=== PATIENT | male | born 1980 | race Caucasian/White ===

== ENCOUNTER → 2017-06-06 | Outpatient (CLI) | payer OTHER ==
[~2017-06-06] MED LIST: CHOL2000 PO; INSDGI SC; NCDT14 TD; NVLGI SC
[2017-06-06 16:35] LABS: HEMATOCRIT 40.8 % (42-52)
[2017-06-06 17:40] LABS: ALT/SGPT 27 U/L (12-78); BLOOD UREA NITROGEN 13 mg/dl (7-18); BUN/CREATININE RATIO 14.4 (10-20); CALCIUM 9.1 mg/dl (8.5-10.1); CARBON DIOXIDE 29 mmol/L (21-32); CHLORIDE 106 mmol/L (98-107); CHOLESTEROL 169 mg/dl (0-200); CREATININE 0.93 mg/dl (0.60-1.40); GLUCOSE 128 mg/dl (70-99); POTASSIUM 3.8 mmol/L (3.5-5.1); SODIUM 139 mmol/L (136-145); TRIGLYCERIDES 115 mg/dl (0-150); VERY LOW DENSITY LIPOPROT CALC 23 mg/dl
[2017-06-06 17:50] LABS: ALB/GLOB RATIO 1.1 (0.9-2); ALKALINE PHOSPHATASE 113 U/L (45-117); AST/SGOT 19 U/L (15-37); HDL CHOLESTEROL 57 mg/dl; LDL CHOLESTEROL CALCULATED 89 mg/dl
[2017-06-06 17:52] LABS: RATIO 16.1 mcg/mg (0-30.0)
[2017-06-07 07:53] LABS: ESTIMATED AVERAGE GLUCOSE 275 mg/dl; HA1C FLAG Normal (Normal)
== END | disposition home or self-care (01) ==
LOC: C.LAB1850 15:46
PROVIDERS: ATTEND Nurse Practitioner Adult Health
DX: E78.5 Hyperlipidemia, unspecified (principal); E10.10 Type 1 diabetes mellitus with ketoacidosis without coma

== ENCOUNTER 2020-03-23 21:20 | Observation (INO) ==
[2020-03-23] MEDS ORDERED: SODIUM CHLORIDE 0.9% 1000ML 2,000 ML IV ONE (22:08)
[2020-03-23] MEDS ORDERED: ONDANSETRON INJ 2 MG/ML 2 ML VIAL IV STA (22:08)
[2020-03-23 22:17] LABS: Basophils # (auto) 0.07 K/uL (0-0.2); Basophils % (auto) 0.3 %; Eosinophils # (auto) 0.03 K/uL (0-0.5); Eosinophils % (auto) 0.1 %; Hematocrit (blood only) 47.1 % (42-52); Hemoglobin 17.1 g/dL (14.0-18.0); Immature Granulocytes # (auto) 0.09 K/uL (0.00-0.02); Immature Granulocytes % (auto) 0.4 %; Lymphocytes # (auto) 3.28 K/uL (1.2-3.4); Lymphocytes % (auto) 15.5 %; Mean Corpuscular Hemoglobin 33.5 pg (25-34); Mean Corpuscular Hgb Conc 36.3 g/dL (32-36); Mean Corpuscular Volume 92.2 fL (80-100); Mean Platelet Volume 9.5 fL (7.4-10.4); Monocytes % (auto) 6.6 %; Neutrophils # (auto) 16.29 K/uL (1.4-6.5); Neutrophils % (auto) 77.1 %; Platelet Count 409 K/uL (130-400); RDW Coefficient of Variation 13.2 % (11.5-14.5); RDW Standard Deviation 44.4 fL (36.4-46.3); Red Blood Count 5.11 M/uL (4.7-6.1); White Blood Count 21.16 K/uL (4.8-10.8)
[2020-03-23 22:34] LABS: Base Excess VBG -11.4 mEq/L; Oxygen Saturation VBG 60.7 %; pH VBG 7.24 (7.36-7.41)
[2020-03-23 22:48] LABS: Alanine Aminotransferase 33 U/L (12-78); Albumin Level 4.2 gm/dl (3.4-5.0); Alkaline Phosphatase 109 U/L (45-117); Aspartate Aminotransferase 23 U/L (15-37); BUN Creatinine Ratio 18.6 (10-20); Bilirubin,Total 0.9 mg/dl (0.2-1); Blood Urea Nitrogen 24 mg/dl (7-18); Calcium 10.2 mg/dl (8.5-10.1); Carbon Dioxide 13 mmol/L (21-32); Chloride 95 mmol/L (98-107); Creatinine Clr Calc Pharmacy 69.5 ml/min; Est GFR (African American) 81.5; Est GFR (Non-African American) 70.4; Globulin 4.1 gm/dl (2.5-4.0); Glucose 444 mg/dl (70-99); Lipase 77 U/L (73-393); Magnesium 2.1 mg/dl (1.8-2.4); Phosphorus 4.6 mg/dl (2.5-4.9); Potassium 5.5 mmol/L (3.5-5.1); Sodium 130 mmol/L (136-145); Total Protein 8.3 gm/dl (6.4-8.2); Troponin I < 0.015 ng/ml (0-0.045)
[2020-03-23] MEDS ORDERED: GLUCAGON FOR INJ 1 MG VIAL SQ PRN (22:55)
[2020-03-23] MEDS ORDERED: DEXTROSE 50% 50 ML SYRINGE IV PRN (22:55)
[2020-03-23] MEDS ORDERED: GLUCOSE 10 TABS/TUBE PO PRN (22:55)
[2020-03-23] MEDS ORDERED: CARBOHYDRATES FOR HYPOGLYCEMIA PO PRN (22:55)
[2020-03-23] MEDS ORDERED: GLUCOSE 40% GEL 15 GM TUBE PO PRN (22:55)
[2020-03-23] MEDS ORDERED: ED DKA INSULIN DRIP ONE (22:55)
[2020-03-23] MEDS ORDERED: MoRPHine SULFATE 4 MG/ML 1 ML CARP\\VIAL IV STA (22:58)
[2020-03-23] MEDS ORDERED: INSULIN REGULAR 250 UNITS in SODIUM CHLORIDE 0.9% 247.5 ML IV SCH (23:00)
--- NOTE | 2020-03-23 23:13 | Emergency Department Note ---
History of Present Illness General Chief complaint: Vomiting Stated complaint: KETONES, DIABETIC Time Seen by Provider: 03/23/20 22:00 Source: patient Mode of arrival: ambulatory Limitations: no limitations History of Present Illness This patient is a 39-year-old male who presents to the emergency department for evaluation of vomiting. Patient reports he is a type I diabetic. He states that he woke up this morning vomiting and has not been able to keep anything down all day. He states that he checked his urine ketones and he had large urine ketones. He reports his sugars have been in the 300s all day. He does not have a pump and gives himself insulin injections but has not given himself insulin today. He does admit to drinking alcohol last night and states that when he has had DKA in the past, it has been precipitated by alcohol use. Patient denies any recent fevers or illness. He reports some mild pain across the front of the chest. He denies shortness of breath but notes his breathing has been faster than normal. He states that he follows with Dr. Chavez. Home Medications Home Medications Medication Instructions Recorded Confirmed Type pen needle, diabetic 32 gauge x #10 ea 05/08/19 03/06/20 History " rosuvastatin 10 mg tablet 10 mg PO DAILY #30 tab 09/06/19 03/23/20 Rx acetone (urine) test #100 ea 02/18/20 03/06/20 Rx insulin lispro 100 unit/mL 120 units SQ .COMPLEX #40 ml 02/18/20 03/23/20 Rx subcutaneous solution insulin syringe-needle U-100 0.5 #100 ea 02/18/20 03/06/20 Rx mL 31 gauge x /16" lancets 33 gauge #100 ea 02/18/20 03/06/20 Rx cholecalciferol (vitamin D3) 50 5,000 units PO DAILY cap 02/20/20 03/23/20 History mcg (2,000 unit) capsule insulin glargine 100 unit/mL (3 25 units SQ QPM ml 03/04/20 03/23/20 History mL) subcutaneous pen lisinopril 5 mg tablet 5 mg PO DAILY #90 tab 03/06/20 03/23/20 Rx blood sugar diagnostic #200 ea 03/11/20 Rx Allergies Allergy/AdvReac Type Severity Reaction Status Date / Time Penicillins Allergy Unknown Rash Verified 03/23/20 22:45 Past Med/Surg History Medical History Back strain (Inactive) Diabetes type 1, uncontrolled Finger fracture, left (Inactive) Finger laceration (Inactive) Injury, crush, finger (Inactive) Pneumonitis (Inactive) Rib contusion (Inactive) Right leg pain (Inactive) Surgical History No significant past surgical history Family History Sister Myocardial infarction Diabetes Mother Diabetes Grandmother (Maternal) Diabetes Grandfather (Paternal) Diabetes Denies family history of Ovarian cancer Prostate cancer Breast cancer Colorectal cancer Social History Smoking Status: Current every day smoker Age Started Using Tobacco: 18; packs per day: 1; Cigarettes Per Day: 20; Hx Alcohol Use: Yes Alcohol type: hard liquor Hx Substance Use: Yes Prescribed Medications: Marijuana Last Used Substance: Hours (ago) Preferred Language: [place] Visual Impairment: Limited Hearing Ability: Normal Clinical Manager Home Care Required: No Beliefs That Will Affect Care: None marital status: Single Current Living Situation: Parent and Family current occupational status: employed current occupation: [employer] Other Information That Helps Us Care for You: No Feels Safe at Home: Yes Safety Concerns: Feels Safe At This Time Childhood Exposure to Second-Hand Smoke: Yes Dental Care, Regularly: No Physical Activity Frequency: Daily Seatbelt Use: always Sunscreen Use: No Review of Systems A total of 10 systems reviewed and were otherwise negative Physical Exam Vital Signs Vital Signs - 24 hr 03/23/20 21:27 03/23/20 22:17 03/23/20 22:30 Temperature 36.5 C Temperature Source Oral Pulse Rate 128 H 109 H 113 H Pulse Rate [Apical] 108 H Pulse Rate from SpO2 Sensor 113 H Pulse Rhythm Regular Respiratory Rate 20 24 30 H Respiratory Effort / Characteristics Other Respiratory Depth Normal Blood Pressure 150/81 H Blood Pressure [Left Arm] 172/80 H Blood Pressure Mean 104 Blood Pressure Mean [Left Arm] 110 Blood Pressure Position [Left Arm] Lying Pulse Oximetry 97 99 98 Oxygen Delivery Method Room Air Room Air Sepsis Recent Fever Within 48 Hours No Sepsis New/Unexplained Change in Mental Status No Sepsis Action Taken by Nursing No Action Required 03/23/20 22:38 03/23/20 23:28 03/23/20 23:30 Temperature Temperature Source Pulse Rate 111 H 119 H 118 H Pulse Rate [Apical] Pulse Rate from SpO2 Sensor 110 H 119 H 118 H Pulse Rhythm Respiratory Rate 28 H 24 14 Respiratory Effort / Characteristics Respiratory Depth Blood Pressure 148/83 H 151/66 H 122/46 L Blood Pressure [Left Arm] Blood Pressure Mean 99 97 66 Blood Pressure Mean [Left Arm] Blood Pressure Position [Left Arm] Pulse Oximetry 98 96 97 Oxygen Delivery Method Room Air Room Air Sepsis Recent Fever Within 48 Hours Sepsis New/Unexplained Change in Mental Status Sepsis Action Taken by Nursing 03/24/20 00:00 Temperature Temperature Source Pulse Rate Pulse Rate [Apical] Pulse Rate from SpO2 Sensor 118 H Pulse Rhythm Respiratory Rate 24 Respiratory Effort / Characteristics Respiratory Depth Blood Pressure 140/55 L Blood Pressure [Left Arm] Blood Pressure Mean 72 Blood Pressure Mean [Left Arm] Blood Pressure Position [Left Arm] Pulse Oximetry 95 Oxygen Delivery Method Room Air Sepsis Recent Fever Within 48 Hours Sepsis New/Unexplained Change in Mental Status Sepsis Action Taken by Nursing VITALS: Vitals are noted on the nurse's note and reviewed by myself. GENERAL: This is a 39-year-old male, in moderate distress, thin appearing. SKIN: There are no rashes. HEAD: Normocephalic atraumatic. EARS: External auditory canals clear, tympanic membranes pearly foote without erythema or effusion bilaterally. EYES: Pupils equal round and reactive to light and accommodation. No scleral icterus. MOUTH: Mucous membranes dry. NECK: Supple without nuchal rigidity. No lymphadenopathy. HEART: Tachycardic. Regular rhythm. Systolic murmur noted. LUNGS: Tachypneic, clear to auscultation bilaterally without wheezes, rales or rhonchi. No retractions or accessory muscle use. ABDOMEN: Positive bowel sounds x 4. Soft, nontender to palpation. NEURO: Patient was alert and oriented to person place and time. Course Reevaluation(s) Reevaluation #1: I reevaluated the patient. He is complaining of some mild pain across the front of the chest. I ordered the patient a dose of morphine. Consultations Consultation #1: Dr. Malick FUNG hospitalist Administered Medications Insulin Human Regular 250 (units/ Sodium Chloride) 250 mls @ 6 mls/hr IV .Q24H SANDEEP; Protocol Stop: 04/22/20 22:59 Last Titration: 03/24/20 01:42 Dose: 5.8 units/hr, 5.8 mls/hr Documented by: [id number] Cosigned by: [id number] Titration: 03/24/20 00:32 Dose: 7.2 units/hr, 7.2 mls/hr Documented by: [id number] Cosigned by: [id number] Admin: 03/23/20 23:30 Dose: 6 units/hr, 6 mls/hr Documented by: [id number] Cosigned by: [id number] Sodium Chloride (Nss 1000ml) 1,000 mls @ 999 mls/hr IV .Q1H1M SANDEEP Stop: 03/24/20 02:02 Last Admin: 03/24/20 01:12 Dose: 999 mls/hr Documented by: [id number] Discontinued Medications Sodium Chloride (Nss 1000ml) 2,000 mls @ 999 mls/hr IV .Q2H1M ONE Stop: 03/24/20 00:08 Last Infusion: 03/24/20 00:18 Dose: 0 mls/hr Documented by: [id number] Admin: 03/23/20 22:12 Dose: 999 mls/hr Documented by: [id number] Insulin Human Regular (Novolin R Bolus From Bag) 6 units IV ONE ONE Stop: 03/23/20 23:16 Last Admin: 03/23/20 23:31 Dose: 6 units Documented by: [id number] Cosigned by: [id number] Morphine Sulfate (Morphine Sulfate) 4 mg IV NOW STA Stop: 03/23/20 22:59 Last Admin: 03/23/20 23:15 Dose: 4 mg Documented by: [id number] Ondansetron HCl (Zofran) 4 mg IV NOW STA Stop: 03/23/20 22:09 Last Admin: 03/23/20 22:13 Dose: 4 mg Documented by: [id number] Critical Care Time Critical Care Time: Yes Total Critical Care Time: 40 I have personally spent greater than 40 minutes of critical care time in the direct management of this patient. This includes bedside care, interpretation of diagnostic studies, and testing, discussion with consultants, patient, and family members, and other required patient management activities. This 40 minutes is in excess of all separately billable procedures. Medical Decision Making Differential Diagnosis Differential diagnosis includes DKA, HHS, infection, sepsis, dehydration, electrolyte imbalance, among others. Medical Records Attestation: I reviewed the patient's medical records. Home Medications Current Medication List: was personally reviewed by me Laboratory Data Attestation: I reviewed the patient's lab results. Result diagrams: 03/23/20 22:06 03/23/20 22:06 Lab Results 03/23/20 03/23/20 03/23/20 Range/Units 22:06 22:06 22:22 WBC 21.16 H (4.8-10.8) K/uL RBC 5.11 (4.7-6.1) M/uL Hgb 17.1 (14.0-18.0) g/dL Hct 47.1 (42-52) % MCV 92.2 (80-100) fL MCH 33.5 (25-34) pg MCHC 36.3 H (32-36) g/dL RDW Std Deviation 44.4 (36.4-46.3) fL RDW Coeff of Norberto 13.2 (11.5-14.5) % Plt Count 409 H (130-400) K/uL MPV 9.5 (7.4-10.4) fL Immature Gran % (Auto) 0.4 % Neut % (Auto) 77.1 % Lymph % (Auto) 15.5 % [place] % (Auto) 6.6 % Eos % (Auto) 0.1 % Baso % (Auto) 0.3 % Neut # (Auto) 16.29 H (1.4-6.5) K/uL Lymph # (Auto) 3.28 (1.2-3.4) K/uL [place] # (Auto) 1.40 H (0.11-0.59) K/uL Eos # (Auto) 0.03 (0-0.5) K/uL Baso # (Auto) 0.07 (0-0.2) K/uL Immature Gran # (Auto) 0.09 H (0.00-0.02) K/uL VBG pH 7.24 L (7.36-7.41) VBG pCO2 36 L (38-50) mmHg VBG pO2 37 mmHg VBG HCO3 15 mmol/L VBG O2 Saturation 60.7 % VBG Base Excess -11.4 mEq/L Barometric Pressure 728.3 mm/Hg Sodium 130 L (136-145) mmol/L Potassium 5.5 H (3.5-5.1) mmol/L Chloride 95 L (98-107) mmol/L Carbon Dioxide 13 L (21-32) mmol/L Anion Gap 22.0 H (3-11) BUN 24 H (7-18) mg/dl Creatinine 1.29 (0.6-1.4) mg/dl Est Cr Clr Drug Dosing 69.5 ml/min Est GFR ( Amer) 81.5 Est GFR (Non-Af Amer) 70.4 BUN/Creatinine Ratio 18.6 (10-20) Glucose 444 H* (70-99) mg/dl Calcium 10.2 H (8.5-10.1) mg/dl Phosphorus 4.6 (2.5-4.9) mg/dl Magnesium 2.1 (1.8-2.4) mg/dl Total Bilirubin 0.9 (0.2-1) mg/dl AST 23 (15-37) U/L ALT 33 (12-78) U/L Alkaline Phosphatase 109 (45-117) U/L Troponin I < 0.015 (0-0.045) ng/ml Total Protein 8.3 H (6.4-8.2) gm/dl Albumin 4.2 (3.4-5.0) gm/dl Globulin 4.1 H (2.5-4.0) gm/dl Albumin/Globulin Ratio 1.0 (0.9-2) Lipase 77 (73-393) U/L Beta-Hydroxybutyric Acd (0.2-2.81) mg/dl Urine Color Urine Appearance (Clear) Urine pH (4.5-7.5) Ur Specific [place] (1.000-1.030) Urine Protein (Negative) Urine Glucose (UA) (Negative) Urine Ketones (Negative) Urine Blood (Negative) Urine Nitrite (Negative) Urine Bilirubin (Negative) Urine Urobilinogen (Negative) Ur Leukocyte Esterase (Negative) 03/23/20 Range/Units 23:19 WBC (4.8-10.8) K/uL RBC (4.7-6.1) M/uL Hgb (14.0-18.0) g/dL Hct (42-52) % MCV (80-100) fL MCH (25-34) pg MCHC (32-36) g/dL RDW Std Deviation (36.4-46.3) fL RDW Coeff of Norberto (11.5-14.5) % Plt Count (130-400) K/uL MPV (7.4-10.4) fL Immature Gran % (Auto) % Neut % (Auto) % Lymph % (Auto) % [place] % (Auto) % Eos % (Auto) % Baso % (Auto) % Neut # (Auto) (1.4-6.5) K/uL Lymph # (Auto) (1.2-3.4) K/uL [place] # (Auto) (0.11-0.59) K/uL Eos # (Auto) (0-0.5) K/uL Baso # (Auto) (0-0.2) K/uL Immature Gran # (Auto) (0.00-0.02) K/uL VBG pH (7.36-7.41) VBG pCO2 (38-50) mmHg VBG pO2 mmHg VBG HCO3 mmol/L VBG O2 Saturation % VBG Base Excess mEq/L Barometric Pressure mm/Hg Sodium (136-145) mmol/L Potassium (3.5-5.1) mmol/L Chloride (98-107) mmol/L Carbon Dioxide (21-32) mmol/L Anion Gap (3-11) BUN (7-18) mg/dl Creatinine (0.6-1.4) mg/dl Est Cr Clr Drug Dosing ml/min Est GFR ( Amer) Est GFR (Non-Af Amer) BUN/Creatinine Ratio (10-20) Glucose (70-99) mg/dl Calcium (8.5-10.1) mg/dl Phosphorus (2.5-4.9) mg/dl Magnesium (1.8-2.4) mg/dl Total Bilirubin (0.2-1) mg/dl AST (15-37) U/L ALT (12-78) U/L Alkaline Phosphatase (45-117) U/L Troponin I (0-0.045) ng/ml Total Protein (6.4-8.2) gm/dl Albumin (3.4-5.0) gm/dl Globulin (2.5-4.0) gm/dl Albumin/Globulin Ratio (0.9-2) Lipase (73-393) U/L Beta-Hydroxybutyric Acd (0.2-2.81) mg/dl Urine Color Yellow Urine Appearance Clear (Clear) Urine pH 5.0 (4.5-7.5) Ur Specific [place] 1.030 (1.000-1.030) Urine Protein Negative (Negative) Urine Glucose (UA) 3+ H (Negative) Urine Ketones 4+ H (Negative) Urine Blood Negative (Negative) Urine Nitrite Negative (Negative) Urine Bilirubin Negative (Negative) Urine Urobilinogen Negative (Negative) Ur Leukocyte Esterase Negative (Negative) Imaging Data Attestation: I personally reviewed and interpreted this imaging study as follows: Radiologist's Impression: CHEST 1 VIEW: No pneumothorax, no pulmonary consolidation. No cardiomegaly. ECG Data Attestation: I personally reviewed and interpreted this ECG as follows: Indication: + chest pain Rate (beats per minute): 108 Rhythm: + sinus tachycardia ECG Intervals/blocks: + Normal QRS and + Normal QT ECG ST segments: + Normal ST segments Change: no significant change Blood Pressure Blood Pressure Findings: Elevated blood pressure Blood Pressure Disposition: further management by hospitalist [facility] Narrative The patient is a 39-year-old male who presents today for evaluation of vomiting and elevated blood sugar. Patient check had positive urine ketones at home. Patient appears dry, he is tachycardic and tachypneic. He has a leukocytosis of 21,000. There was no anemia. VBG with pH of 7.24, sodium 130, potassium 5.5, chloride 95, bicarb 13 and a anion gap of 22. Glucose elevated at 444. Urine positive for glucose and ketones. Patient was treated in the emergency department with 2 L of IV normal saline solution and started on insulin drip. The case was discussed with the [facility] hospitalist service, who agreed to evaluate the patient for further care. Continuous gift packer: Order was placed for continuous gift packer. Patient was placed on the gift packer. Patient was noted to be in sinus tachycardia at an initial rate of 128 bpm. Impression & Plan DKA (diabetic ketoacidosis) Discharge Plan Visit Data *Final* Discharge Date/Time: 03/24/20 00:47 Chief Complaint: Vomiting Stated Complaint: KETONES, DIABETIC ED Provider: Vinny Du ED Midlevel Provider: Norah Garcia Discharge Problem: DKA (diabetic ketoacidosis) Patient Disposition: Admitted As Inpatient Discharge Instructions Interventions: ED Discharge Assessment Last Done: 03/24/20 00:47 Discharge Problem: DKA (diabetic ketoacidosis) Qualifiers: Diabetes mellitus type: type 1 Diabetes mellitus complication detail: without coma Qualified Code(s): E10.10 - Type 1 diabetes mellitus with ketoacidosis without coma
[2020-03-23] MEDS ORDERED: NovoLIN-R BOLUS FROM BAG IV ONE (23:15)
[2020-03-23 23:40] LABS: Appearance Urine Clear (Clear); Bilirubin Urine Negative (Negative); Blood Urine Negative (Negative); Color Urine Yellow; Glucose Urine UA 3+ (Negative); Ketones Urine 4+ (Negative); Leukocyte Esterase Urine Negative (Negative); Nitrite Urine Negative (Negative); Protein Urine Negative (Negative); Urobilinogen Urine Negative (Negative)
--- NOTE | 2020-03-24 00:20 | History & Physical Report ---
Date of Service March 24, 2020 Assessment & Plan (1) DKA (diabetic ketoacidosis): Patient with longstanding history of Type I DM, poorly controlled (Last [id number] which is improved from prior) with microalbuminuria presenting with DKA in setting of recent heavy EtOH consumption. Patient with AGMA with pH=7.24, Anion gap = 22. Blood glucose = 444, +Ketones in urine -Admit to PCU -NPO for now -NSS x 1L bolus for total of 3L -Insulin gtt per protocol -Monitor fingersticks q 1 hourly -Monitor BMP, Mg, PO4 and VBG q 4 hours -Transition to SQ insulin when gap closed and blood sugars controlled -Continue Lisinopril 5mg -Continue Crestor 10mg F/E/N - Normosol, pending fluid change with KCl and D5 based on labs, monitor electrolytes as above, NPO for now Ppx - low risk for DVT Code - Full Dispo - Admit to PCU Present on Admission?: Yes Admission and Anticipated Discharge Date Admission Date: 03/24/20 Anticipated date of discharge: 03/25/20 History of Present Illness Chief Complaint: DKA Primary Care Provider: Unique Schafer MD Lopez Katz is a 39yo C male with history of Type-I DM since age 8 months presenting with DKA. Patient follows with Diabetes/Endocrine clinic, last seen on 03/21/20. He reports drinking a fair amount of alcohol on the night prior to admission - appx 1/2 a bottle of 99 Peaches. Yesterday AM he woke up with some nausea and reports vomiting black liquid which he reports frequently occurs when he has ketones. He checked his blood sugar which read "HIGH" and had moderate amount of ketones in his urine. He reports trying to drink fluids, however, he had persistent nausea, vomiting and inability to tolerate PO. He checked his ketones later in the day and found to have large ketones. He reports ongoing nausea with vomiting and dry heaving as well as dry mouth. No additional complaints. He denies fever/chills/cough/SOB/abdominal pain/diarrhea/dysuria. He has no concerns for exposure to COVID-19. He reports taking his Lantus 03/23/20 around midnight. He also took 10 units of Insulin Lispro this afternoon. ER Course: NSS x 2 liters, Insulin gtt Allergies Allergy/AdvReac Type Severity Reaction Status Date / Time Penicillins Allergy Unknown Rash Verified 03/23/20 22:45 Home Medications Home Medications Medication Instructions Recorded Confirmed Type pen needle, diabetic 32 gauge x #10 ea 05/08/19 03/06/20 History 5/32" rosuvastatin 10 mg tablet 10 mg PO DAILY #30 tab 09/06/19 03/23/20 Rx acetone (urine) test #100 ea 02/18/20 03/06/20 Rx insulin lispro 100 unit/mL 120 units SQ .COMPLEX #40 ml 02/18/20 03/23/20 Rx subcutaneous solution insulin syringe-needle U-100 0.5 #100 ea 02/18/20 03/06/20 Rx mL 31 gauge x 01/10" lancets 33 gauge #100 ea 02/18/20 03/06/20 Rx cholecalciferol (vitamin D3) 50 5,000 units PO DAILY cap 02/20/20 03/23/20 History mcg (2,000 unit) capsule insulin glargine 100 unit/mL (3 25 units SQ QPM ml 03/04/20 03/23/20 History mL) subcutaneous pen lisinopril 5 mg tablet 5 mg PO DAILY #90 tab 03/06/20 03/23/20 Rx blood sugar diagnostic #200 ea 03/11/20 Rx Past Med/Surg History Medical History (Updated 03/24/20 @ 01:14 by Ebony Teresa DO) Back strain (Inactive) Diabetes type 1, uncontrolled Finger fracture, left (Inactive) Finger laceration (Inactive) Injury, crush, finger (Inactive) Pneumonitis (Inactive) Rib contusion (Inactive) Right leg pain (Inactive) Surgical History (Updated 03/24/20 @ 01:12 by Ebony Teresa DO) No significant past surgical history Family History Sister Myocardial infarction Diabetes Mother Diabetes Grandmother (Maternal) Diabetes Grandfather (Paternal) Diabetes Denies family history of Ovarian cancer Prostate cancer Breast cancer Colorectal cancer Social History Smoking Status: Current every day smoker Age Started Using Tobacco: 18; packs per day: 1; Cigarettes Per Day: 20; Hx Alcohol Use: Yes Hx Substance Use: Yes Prescribed Medications: Marijuana Preferred Language: [place] Visual Impairment: Limited Hearing Ability: Normal marital status: Single Current Living Situation: Family current occupational status: employed current occupation: Ever Feels Safe at Home: Yes Childhood Exposure to Second-Hand Smoke: Yes Dental Care, Regularly: No Physical Activity Frequency: Daily Seatbelt Use: always Sunscreen Use: No Review of Systems Review of Systems: All systems reviewed & are unremarkable except as noted in HPI & below Physical Exam Physical Exam: General: patient resting comfortably, NAD, non-toxic in appearance, AA&O x 4 Skin: warm, dry, intact, no rashes or lesions HEENT: NC/AT, PERRL, EOMI, anicteric sclera, conjunctiva without injection, external ear normal to inspection and nontender, nares patent, dry mucus membranes, dentition intact, no oropharyngeal lesions, neck supple, trachea midline, no LAD, no thyromegaly, no JVD Heart: +S1/S2, regular, tachycardic, no m/r/g Lungs: equal air entry bilaterally, no rales/rhonchi/wheezes Abd: +BS, soft, NT/ND, no masses/organomegaly/ascites Ext: warm, 2+ pulses in UE/LE bilaterally, no clubbing/cyanosis or edema Neuro: nonfocal, patient AA&O x 4, speech intact, no facial droop, moving all extremities on command with equal strength 5/5 Results & Data Results & Data ([facility]) Vital Signs (Past 12 Hours) Vital Signs Temp Pulse Pulse Resp BP BP Pulse Ox 03/24/20 00:00 24 140/55 L 95 03/23/20 23:30 118 H 14 122/46 L 97 03/23/20 23:28 119 H 24 151/66 H 96 03/23/20 22:38 111 H 28 H 148/83 H 98 03/23/20 22:30 113 H 30 H 98 03/23/20 22:17 109 H 108 H 24 172/80 H 99 03/23/20 21:27 36.5 C 128 H 20 150/81 H 97 Laboratory Results Lab Results 03/23/20 03/23/20 03/23/20 Range/Units 22:06 22:06 22:22 WBC 21.16 H (4.8-10.8) K/uL RBC 5.11 (4.7-6.1) M/uL Hgb 17.1 (14.0-18.0) g/dL Hct 47.1 (42-52) % MCV 92.2 (80-100) fL MCH 33.5 (25-34) pg MCHC 36.3 H (32-36) g/dL RDW Std Deviation 44.4 (36.4-46.3) fL RDW Coeff of Norberto 13.2 (11.5-14.5) % Plt Count 409 H (130-400) K/uL MPV 9.5 (7.4-10.4) fL Immature Gran % (Auto) 0.4 % Neut % (Auto) 77.1 % Lymph % (Auto) 15.5 % [place] % (Auto) 6.6 % Eos % (Auto) 0.1 % Baso % (Auto) 0.3 % Neut # (Auto) 16.29 H (1.4-6.5) K/uL Lymph # (Auto) 3.28 (1.2-3.4) K/uL [place] # (Auto) 1.40 H (0.11-0.59) K/uL Eos # (Auto) 0.03 (0-0.5) K/uL Baso # (Auto) 0.07 (0-0.2) K/uL Immature Gran # (Auto) 0.09 H (0.00-0.02) K/uL VBG pH 7.24 L (7.36-7.41) VBG pCO2 36 L (38-50) mmHg VBG pO2 37 mmHg VBG HCO3 15 mmol/L VBG O2 Saturation 60.7 % VBG Base Excess -11.4 mEq/L Barometric Pressure 728.3 mm/Hg Sodium 130 L (136-145) mmol/L Potassium 5.5 H (3.5-5.1) mmol/L Chloride 95 L (98-107) mmol/L Carbon Dioxide 13 L (21-32) mmol/L Anion Gap 22.0 H (3-11) BUN 24 H (7-18) mg/dl Creatinine 1.29 (0.6-1.4) mg/dl Est Cr Clr Drug Dosing 69.5 ml/min Est GFR ( Amer) 81.5 Est GFR (Non-Af Amer) 70.4 BUN/Creatinine Ratio 18.6 (10-20) Glucose 444 H* (70-99) mg/dl POC Glucose (70-99) mg/dl Calcium 10.2 H (8.5-10.1) mg/dl Phosphorus 4.6 (2.5-4.9) mg/dl Magnesium 2.1 (1.8-2.4) mg/dl Total Bilirubin 0.9 (0.2-1) mg/dl AST 23 (15-37) U/L ALT 33 (12-78) U/L Alkaline Phosphatase 109 (45-117) U/L Troponin I < 0.015 (0-0.045) ng/ml Total Protein 8.3 H (6.4-8.2) gm/dl Albumin 4.2 (3.4-5.0) gm/dl Globulin 4.1 H (2.5-4.0) gm/dl Albumin/Globulin Ratio 1.0 (0.9-2) Lipase 77 (73-393) U/L Beta-Hydroxybutyric Acd (0.2-2.81) mg/dl Urine Color Urine Appearance (Clear) Urine pH (4.5-7.5) Ur Specific [place] (1.000-1.030) Urine Protein (Negative) Urine Glucose (UA) (Negative) Urine Ketones (Negative) Urine Blood (Negative) Urine Nitrite (Negative) Urine Bilirubin (Negative) Urine Urobilinogen (Negative) Ur Leukocyte Esterase (Negative) 03/23/20 03/24/20 Range/Units 23:19 00:21 WBC (4.8-10.8) K/uL RBC (4.7-6.1) M/uL Hgb (14.0-18.0) g/dL Hct (42-52) % MCV (80-100) fL MCH (25-34) pg MCHC (32-36) g/dL RDW Std Deviation (36.4-46.3) fL RDW Coeff of Norberto (11.5-14.5) % Plt Count (130-400) K/uL MPV (7.4-10.4) fL Immature Gran % (Auto) % Neut % (Auto) % Lymph % (Auto) % [place] % (Auto) % Eos % (Auto) % Baso % (Auto) % Neut # (Auto) (1.4-6.5) K/uL Lymph # (Auto) (1.2-3.4) K/uL [place] # (Auto) (0.11-0.59) K/uL Eos # (Auto) (0-0.5) K/uL Baso # (Auto) (0-0.2) K/uL Immature Gran # (Auto) (0.00-0.02) K/uL VBG pH (7.36-7.41) VBG pCO2 (38-50) mmHg VBG pO2 mmHg VBG HCO3 mmol/L VBG O2 Saturation % VBG Base Excess mEq/L Barometric Pressure mm/Hg Sodium (136-145) mmol/L Potassium (3.5-5.1) mmol/L Chloride (98-107) mmol/L Carbon Dioxide (21-32) mmol/L Anion Gap (3-11) BUN (7-18) mg/dl Creatinine (0.6-1.4) mg/dl Est Cr Clr Drug Dosing ml/min Est GFR ( Amer) Est GFR (Non-Af Amer) BUN/Creatinine Ratio (10-20) Glucose (70-99) mg/dl POC Glucose 382 H* (70-99) mg/dl Calcium (8.5-10.1) mg/dl Phosphorus (2.5-4.9) mg/dl Magnesium (1.8-2.4) mg/dl Total Bilirubin (0.2-1) mg/dl AST (15-37) U/L ALT (12-78) U/L Alkaline Phosphatase (45-117) U/L Troponin I (0-0.045) ng/ml Total Protein (6.4-8.2) gm/dl Albumin (3.4-5.0) gm/dl Globulin (2.5-4.0) gm/dl Albumin/Globulin Ratio (0.9-2) Lipase (73-393) U/L Beta-Hydroxybutyric Acd (0.2-2.81) mg/dl Urine Color Yellow Urine Appearance Clear (Clear) Urine pH 5.0 (4.5-7.5) Ur Specific [place] 1.030 (1.000-1.030) Urine Protein Negative (Negative) Urine Glucose (UA) 3+ H (Negative) Urine Ketones 4+ H (Negative) Urine Blood Negative (Negative) Urine Nitrite Negative (Negative) Urine Bilirubin Negative (Negative) Urine Urobilinogen Negative (Negative) Ur Leukocyte Esterase Negative (Negative) Diagnostic Findings CXR - no active disease, no evidence of consolidation, PTX Code Status & VTE Plan Code Status FULL PG Care Time/CCT Total # of Minutes Spent Total Time Spent with Patient: Total time spent is greater than 50% in coordination of care (as documented) at patient's floor/unit and/or counseling patient: Coding Level of Care Code 59538 Initial Inpt Care Lvl 2 Diagnoses DKA (diabetic ketoacidosis) E10.10 Diabetes mellitus type: type 1 Diabetes mellitus complication detail: without coma (1) DKA (diabetic ketoacidosis) Diabetes mellitus type: type 1 Diabetes mellitus complication detail: without coma Qualified Code(s): E10.10 - Type 1 diabetes mellitus with ketoacidosis without coma
[2020-03-24] MEDS ORDERED: ACETAMINOPHEN 325 MG TAB PO PRN (01:02)
[2020-03-24] MEDS ORDERED: ONDANSETRON INJ 2 MG/ML 2 ML VIAL IV PRN (01:02)
[2020-03-24] MEDS ORDERED: SODIUM CHLORIDE 0.9% 1000ML 1,000 ML IV SCH (01:02)
[2020-03-24] MEDS ORDERED: DKA GOAL RANGE 150-250 mg/dl ONE (01:02)
[2020-03-24] MEDS ORDERED: INSULIN REGULAR 250 UNITS in SODIUM CHLORIDE 0.9% 247.5 ML IV SCH (01:02)
[2020-03-24 01:59] LABS: BUN Creatinine Ratio 19.1 (10-20); Calcium 8.6 mg/dl (8.5-10.1); Creatinine Clr Calc Pharmacy 72.1 ml/min; Est GFR (African American) 83.9; Est GFR (Non-African American) 72.4; Magnesium 1.9 mg/dl (1.8-2.4); Phosphorus 3.3 mg/dl (2.5-4.9); Potassium 4.7 mmol/L (3.5-5.1)
[2020-03-24] MEDS ORDERED: PENDING 1/2NSS+20mEq KCL IVF SCH (02:00)
[2020-03-24] MEDS ORDERED: PENDING D5 1/2NS+20mEq KCL IVF SCH (02:00)
[2020-03-24] MEDS ORDERED: NORMOSOL-R 1,000 ML IV SCH (02:15)
[2020-03-24] MEDS ORDERED: DEXTROSE 50% 50 ML SYRINGE IV PRN ×2 (02:30→09:24)
[2020-03-24] MEDS ORDERED: GLUCAGON FOR INJ 1 MG VIAL IM PRN (02:30)
[2020-03-24] MEDS ORDERED: CARBOHYDRATES FOR HYPOGLYCEMIA PO PRN ×2 (02:30→09:24)
[2020-03-24] MEDS ORDERED: GLUCOSE 40% GEL 15 GM TUBE PO PRN ×2 (02:30→09:24)
[2020-03-24] MEDS ORDERED: GLUCOSE 10 TABS/TUBE PO PRN ×2 (02:30→09:24)
[2020-03-24 02:31] LABS: Beta-Hydroxybutyrate 53.41 mg/dl (0.2-2.81)
[2020-03-24] MEDS: D5W AND 1/2NSS + 20MEQ KCL 20 MEQ/1,000 ML BAG IV SCH ×2 (02:44→09:12)
[2020-03-24 05:57] LABS: BUN Creatinine Ratio 18.5 (10-20); Calcium 8.1 mg/dl (8.5-10.1); Creatinine Clr Calc Pharmacy 84.9 ml/min; Est GFR (African American) 102.2; Est GFR (Non-African American) 88.2; Potassium 4.8 mmol/L (3.5-5.1)
[2020-03-24 05:59] LABS: Phosphorus 2.7 mg/dl (2.5-4.9)
--- NOTE | 2020-03-24 07:10 | XRay Report ---
XR chest 1V portable CLINICAL HISTORY: dka, vomiting nausea. Dyspnea. COMPARISON STUDY: 02/29/2016 FINDINGS: The bones soft tissues and hemidiaphragms are normal. The cardiomediastinal silhouette is n ormal. The lungs are clear. The pulmonary vasculature is normal. IMPRESSION: Negative chest. ACT 112: Negative or not required by law. The above report was generated using voice recognition software. It may contain grammatical, syntax or spelling errors. Electronically signed by: Luis Martin M.D. 03/24/2020 7:09 AM
[2020-03-24] MEDS ORDERED: INSULIN ASPART 100 UNITS/ML 3 ML PEN SC SCH ×2 (07:30)
[2020-03-24] MEDS ORDERED: lisinopriL 5 MG TAB PO SCH (09:00)
[2020-03-24] MEDS ORDERED: ROSUVASTATIN CALCIUM 10 MG TAB PO SCH (09:00)
[2020-03-24] MEDS ORDERED: GLUCAGON FOR INJ 1 MG VIAL SQ PRN (09:24)
[2020-03-24] MEDS ORDERED: INSULIN GLARGINE SOLOSTAR 100 UNITS/ML 3 ML PEN SC SCH (09:30)
[2020-03-24 09:42] LABS: BUN Creatinine Ratio 17.7 (10-20); Calcium 8.2 mg/dl (8.5-10.1); Creatinine Clr Calc Pharmacy 91.8 ml/min; Est GFR (African American) 112.3; Est GFR (Non-African American) 96.9; Magnesium 2.1 mg/dl (1.8-2.4); Phosphorus 2.5 mg/dl (2.5-4.9); Potassium 3.8 mmol/L (3.5-5.1)
--- NOTE | 2020-03-24 11:31 | Medical Student Progress Note ---
Date of Service March 24, 2020 Assessment & Plan (1) DKA (diabetic ketoacidosis): Diabetes mellitus complication detail: without coma Diabetes mellitus type: type 1 Qualified Code(s): E10.10 - Type 1 diabetes mellitus with ketoacidosis without coma (2) Diabetes, type I: Assessment: Patient is a 39 year old male with a history of type I DM with h/o recent excessive alcohol use who was having nausea, vomiting and unable to tolerate PO presented to ED after noticing excessive ketones in his urine DKA (diabetic ketoacidosis) -sec to excessive alcohol use and dehydration -electrolytes have corrected, blood pH has become normal, blood glucose levels have coming down, and anion gap has closed -discontinue fluids -transition from IV insulin to SQ home doses of insulin -25 units/day for basal insulin -for sliding scale insulin: carb ratio 1:15 and correction factor of 45 -start PO intake -continue to monitor POC glucose - anticipate home later today. HTN -continue home meds of lisinopril 5 mg, rosuvastatin 10 mg Concern of alcohol use disoder - was drinking beer initially. Does not usually drink, lately has been drinking vodka. - going through stress of custody hearing for his kids. -offered stress counselling options and med mx for AUD - declined. Comfortable following up with his PCP as outpatient with whom he reports a good relationship. FEN/GI - D/c fluids. Change diet from NPO to PO DVT Ppx - low risk for DVT Code - Full Dispo - patient wishes to go home tonight, as he has a court hearing for custody of his children tomorrow afternoon. If his glucose continues to downtrend, his electrolytes stay stable, and he continues to feel well, then we hope to discharge this evening. Supervising Attestation Medical Student Supervision Note: I independently interviewed and examined the patient and verified the dawson history and physical, reviewed labs and image studies, discussed the case with Chula Liu and agree with the findings and care plan. Anion gap closed. Hemodynamically stable. switched to SQ insulin. anticipate d/c home later today. counselled on cutting down alcohol use. Subjective Patient reports feeling much better this AM. He has no pain, n/v, or fatigue. Review of Systems Review of Systems: Constitutional: Denies fever, chills, malaise Eyes: Denies double vision, vision change ENT: Denies ear pain, sore throat Cardiovascular: Denies Chest pain, chest pressure, extremity swelling Respiratory: Denies shortness of breath, cough, sputum production, difficulty breathing Gastrointestinal: Denies abdominal pain, nausea, vomiting, constipation, diarrh ea Genitourinary: Denies pain with urination, urinary urgency, urinary frequency Musculoskeletal: Denies weakness, muscle aches/pain, joint aches/pain Integumentary:Denies rash, lesions, bruising Neurological: Denies headache, numbness, tingling, focal weakness Gastrointestinal: no nausea and no vomiting Endocrine: no fatigue Physical Exam Constitutional: WD/WN, vitals as above Respiratory: normal respiratory effort, lungs clear to auscultation Cardiovascular: RRR, no murmur, no edema Gastrointestinal (Abdomen): normal bowel sounds, soft, nontender, no hepatosplenomegaly Results & Data ([facility]) Vital Signs (Past 12 Hours) Vital Signs Temp Pulse Pulse Resp BP BP Pulse Ox 03/24/20 10:57 37.0 C 88 17 130/62 99 03/24/20 09:24 99 H 03/24/20 07:51 36.9 C 85 16 122/60 98 03/24/20 03:16 37.0 C 103 H 17 108/50 L 97 03/24/20 01:17 36.9 C 108 H 20 153/92 H 97 03/24/20 00:30 22 143/71 H 95 03/24/20 00:00 24 140/55 L 95 03/23/20 23:30 118 H 14 122/46 L 97 03/23/20 23:28 119 H 24 151/66 H 96
[2020-03-24] MEDS: INSULIN ASPART 100 UNITS/ML 3 ML PEN SC SCH ×2 (11:47→16:45)
[2020-03-24 13:56] LABS: BUN Creatinine Ratio 15.9 (10-20); Calcium 8.4 mg/dl (8.5-10.1); Creatinine Clr Calc Pharmacy 79.7 ml/min; Est GFR (African American) 94.7; Est GFR (Non-African American) 81.7; Magnesium 2.1 mg/dl (1.8-2.4); Potassium 4.2 mmol/L (3.5-5.1)
[2020-03-24 13:58] LABS: Phosphorus 3.2 mg/dl (2.5-4.9)
[2020-03-24 17:41] LABS: BUN Creatinine Ratio 15.1 (10-20); Calcium 8.5 mg/dl (8.5-10.1); Creatinine Clr Calc Pharmacy 79.7 ml/min; Est GFR (African American) 94.7; Est GFR (Non-African American) 81.7; Potassium 4.4 mmol/L (3.5-5.1)
[2020-03-24 17:43] LABS: Phosphorus 2.4 mg/dl (2.5-4.9)
--- NOTE | 2020-03-24 17:44 | Discharge Summary ---
Date of Service March 24, 2020 Admission HPI Per Admitting Provider Lopez Katz is a 39yo C male with history of Type-I DM since age 8 months presenting with DKA. Patient follows with Diabetes/Endocrine clinic, last seen on 03/21/20. He reports drinking a fair amount of alcohol on the night prior to admission - appx 1/2 a bottle of 99 Peaches. Yesterday AM he woke up with some nausea and reports vomiting black liquid which he reports frequently occurs when he has ketones. He checked his blood sugar which read "HIGH" and had moderate amount of ketones in his urine. He reports trying to drink fluids, however, he had persistent nausea, vomiting and inability to tolerate PO. He checked his ketones later in the day and found to have large ketones. He reports ongoing nausea with vomiting and dry heaving as well as dry mouth. No additional complaints. He denies fever/chills/cough/SOB/abdominal pain/diarrhea/dysuria. He has no concerns for exposure to COVID-19. He reports taking his Lantus 03/23/20 around midnight. He also took 10 units of Insulin Lispro this afternoon. ER Course: NSS x 2 liters, Insulin gtt Admission Exam Per Admitting Provider General: patient resting comfortably, NAD, non-toxic in appearance, AA&O x 4 Skin: warm, dry, intact, no rashes or lesions HEENT: NC/AT, PERRL, EOMI, anicteric sclera, conjunctiva without injection, external ear normal to inspection and nontender, nares patent, dry mucus membranes, dentition intact, no oropharyngeal lesions, neck supple, trachea midline, no LAD, no thyromegaly, no JVD Heart: +S1/S2, regular, tachycardic, no m/r/g Lungs: equal air entry bilaterally, no rales/rhonchi/wheezes Abd: +BS, soft, NT/ND, no masses/organomegaly/ascites Ext: warm, 2+ pulses in UE/LE bilaterally, no clubbing/cyanosis or edema Neuro: nonfocal, patient AA&O x 4, speech intact, no facial droop, moving all extremities on command with equal strength 5/5 Principal Diagnosis DKA Discharge Exam General: A&Ox3. NAD. Cooperative. HEENT: Atraumatic, normocephalic. MMM. Pulm: CTAB A&P. -wheezes, -rales, -rhonchi. Symmetrical chest rise. No increase work of breathing. No respiratory distress. Cardiac: RRR, -mrg. Radial pulses intact and symmetrical. Abdominal: Nontender, nondistended, soft. BS present. Discharge Data Allergies Allergy/AdvReac Type Severity Reaction Status Date / Time Penicillins Allergy Unknown Rash Verified 03/23/20 22:45 Consultations 03/23/20 23:13 ED Decision to Admit Stat Hospital Course (1) Diabetes, type I: Lopez Katz is a 39-year-old male with a past medical history of type 1 diabetes mellitus who presented with DKA onset by alcohol consumption. To Do As Outpatient: 1. Followup appointment for DKA 2. Followup with PCP to discuss stress management and alternative coping strategies which do not include alcohol DKA Lopez reports that he had recently been having difficulties with a custody mcarthur for his children, and had drank more than he normally would and started to get dehydrated. He noted that he was unable to get rid of the ketones by drinking large amounts of water, and presented to the emergency department. He was found to have a increased anion gap metabolic acidosis with positive beta hydroxybutyrate and a blood glucose greater than 300. He was placed on an in sulin drip overnight and given IV fluids. He improved overnight, his blood glucose came down under 200, and his gap closed with normalization of his serum bicarbonate. He was transitioned to subcutaneous insulin, and maintained adequate glycemic control. He was discharged to continue his home dosing of basal bolus insulin. Alcohol use Lopez reported that he had drank a few Jem's hard lemonade's and some vodka, which was unusual for him prior to admission. He noted that he was very stressed after a custody dispute with his children and the potential to lose custody of them. He was counseled on the effects of alcohol, and patient noted that he does not normally drink and does not like alcohol so does not think eliminating or keeping a low alcohol intake will be a problem with him in the future. He noted he is very open with his providers, and we will follow-up with him for stress management. Denied further counseling or intervention at time of admission, but was agreeable to follow-up with his primary provider. DVT prophylaxis Given was low risk for DVT, and did not show any signs of DVT during admission. (2) DKA (diabetic ketoacidosis): Total Time Total Time Spent Total Time Spent (In Minutes): See Attending Documentaiton Discharge Plan Discharge Items Patient Disposition: Home - Self-Care Reason For Visit: DKA Discharge Diagnosis: DKA Activity: Resume your previous activity Non-emergency contact: Primary Care Provider Call non-emergency contact if: you have any medication questions, your symptoms worsen, your pain is not controlled, your pain is worsening, your pain is unusual for you and your temperature is above 101 Follow-up/Referrals: Unique Schafer MD [Primary Care Provider] - Diet: Regular Addtl Attending Provider Instructions: You are seen in the hospital for diabetic ketoacidosis due to drinking alcohol and becoming dehydrated. Due to your type 1 diabetes you are at risk of developing DKA which can be very serious and even life-threatening. Alcohol and dehydration can contribute to developing DKA. You improved and your DKA resolved during admission, and you has been discharged to follow-up with your primary care provider. Please check your urine for ketones as previously instructed, and if you become concerned for worsening symptoms please contact your primary care doctor for instruction in the future. You have not been prescribed any new medications. Please resume your normal insulin dosing once you return home. A followup appointment is being scheduled for you with Dr. Avila. You should be seen seen within 1 week. You should receive a call to confirm this appointment. If you do not receive a call within 48 hours to confirm this appointment, or need to change this appointment, please call the provider's office at [phone]. If you develop any new or worsening symptoms including fever, chills, sweats, chest pain, chest pressure, difficulty breathing, uncontrolled nausea/vomiting, rash, wheezing, passing out or nearly passing out, bleeding, black/bloody bowel movements, or other new or concerning symptoms please call your primary care physician at [phone], or call [phone] for re-evaluation in the emergency department if you are very concerned. Pending Studies at Discharge: No Stand-Alone Forms: My [place], Smoking Cessation Medications and DC Order Prescriptions: Continued rosuvastatin [Crestor] 10 mg tablet 10 mg PO DAILY Qty: 30 RF: 5 (DME) OneTouch Ultra Blue Test Strip Strip See Dose Instructions .ROUTE .MEDSUPPLY Qty: 200 RF: 5 (DME) pen needle, diabetic [BD Ultra-Fine Amber Pen Needle] 32 gauge x 5/32" needle See Dose Instructions .ROUTE .MEDSUPPLY Qty: 10 RF: 0 Lantus Solostar U-100 Insulin 100 unit/mL (3 mL) insulin pen 25 units SQ QPM RF: 0 lisinopril 5 mg tablet 5 mg PO DAILY Qty: 90 RF: 3 cholecalciferol (vitamin D3) 50 mcg (2,000 unit) capsule 5,000 units PO DAILY RF: 0 insulin lispro [Admelog U-100 Insulin lispro] 100 unit/mL solution 120 units SQ .COMPLEX Qty: 40 RF: 6 (DME) insulin syringe-needle U-100 [BD Insulin Syringe Ultra-Fine] 0.5 mL 31 gauge x 5/16" syringe See Dose Instructions .ROUTE .MEDSUPPLY Qty: 100 RF: 6 (DME) lancets [OneTouch Delica Lancets] 33 gauge misc See Dose Instructions .ROUTE .MEDSUPPLY Qty: 100 RF: 0 (DME) Ketostix Strip See Dose Instructions .ROUTE .MEDSUPPLY Qty: 100 RF: 3 Discharge Orders: Discharge Order (Routine); Ordered 03/24/20 Ordered By: Vineet Vargas/Other Patient Handouts: Using a Blood Sugar Log, Ketoacidosis Ch Admission Data Admit Date/Time: 03/24/20 00:19 Attending Provider: Luz Clinton Admit Provider: Ebony Teresa Primary Care Provider: Unique Schafer V. Other Providers: Ebony Teresa Other Interventions: Discharge Summary Assessment (RN) Last Done: 03/24/20 18:19 DC Date/Time DO NOT enter until pt leaves facility: 03/24/20 19:10 Supervising Physician Co-Signing Physician Notes Resident Physician Supervision Note: I independently interviewed and examined the patient and verified the dawson history and physical, reviewed labs and image studies, discussed the case with the resident Dr. Sosa and agree with the findings and care plan. Time spent in discharge 35 min Resident Activity Tracking Resident Involvement: Resident Care Provided Care Provided: Adult Hospital Medicine
--- NOTE | 2020-03-26 08:17 | Electrocardiogram Report ---
Test Reason : Blood Pressure : / mmHG Vent. Rate : 108 BPM Atrial Rate : 108 BPM P-R Int : 124 ms QRS Dur : 080 ms QT Int : 322 ms P-R-T Axes : 067 086 050 degrees QTc Int : 431 ms Sinus tachycardia Otherwise normal ECG When compared with ECG of 29-FEB-2016 11:25, No significant change was found Confirmed by Gurvinder Camacho ([id number]) on 03/26/2020 8:17:03 AM Referred By: REFERRED SELF Confirmed By:Gurvinder Camacho
== END 2020-03-24 19:10 | disposition home or self-care (01) ==
LOC: ED 21:20 → SUATTDRO 03-24 00:19 → 2E 03-24 00:19 → INTOOBSV 03-24 00:19 → 2E 03-24 00:47